=== PATIENT | male | born 1950 | race Caucasian/White ===

== ENCOUNTER 2017-02-17 23:48 | Emergency (ER) | payer SELFPAY ==
[~2017-02-17] VITALS: Ht 177.8 cm; Wt 68.0 kg
[~2017-02-17 23:48] MED LIST: ATORVASTATIN CA10 MG ORAL
[2017-02-17 23:50] VITALS: BP 132/81
[2017-02-18] MEDS ORDERED: IBUPROFEN600 MG ORAL (00:31)
--- NOTE | 2017-02-18 00:31 | Emergency Room Report ---
History of Present Illness General Chief Complaint: Pain Source: Patient, EMS Present Illness HPI Is a 66-year-old male with a history alcohol abuse. He presents with left leg pain. 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 He had surgery to the left leg. Since then he said his been complaining of pain. Throbbing in nature. He was in a nearby grocery store parking lot and someone called 911 because he was loitering there. He told police that his legs hurt so they called 911. Patient denies any new trauma. Pain is 9/10. He said that he can't walk but EMS said that he was walking without any difficulty. Allergies: Coded Allergies: No Known Allergies (Unverified , 02/17/17) Patient History Past Medical History: see triage record, old chart reviewed Past Surgical History: other Pertinent Family History: none Social History: Denies: smoking Immunizations: other Reviewed Nursing Documentation: PMH: Agreed, PSxH: Agreed Nursing Documentation-PMH Hx Hypertension: Yes Hx Asthma: Yes Hx Cerebrovascular Accident: Yes Hx Seizures: Yes Review of Systems Eye: Denies: blurred vision, eye pain ENT: Denies: ear pain, nose congestion, throat swelling Respiratory: Denies: cough, shortness of breath Cardiovascular: Denies: chest pain, palpitations Gastrointestinal: Denies: abdominal pain, diarrhea, nausea, vomiting Musculoskeletal: Reports: muscle pain, Denies: back pain, joint pain Skin: Denies: rash Neurological: Denies: headache, numbness Endocrine: Denies: increased thirst, increased urine Hematologic/Lymphatic: Denies: easy bruising All Other Systems: negative except mentioned in HPI Physical Exam Vital Signs Date Time Temp Pulse Resp B/P Pulse Ox O2 Delivery O2 Flow Rate FiO2 02/17/17 23:42 98.2 82 20 132/81 98 Room Air vitals normal Sp02 EP Interpretation: reviewed, normal General Appearance: well appearing, no apparent distress, alert Head: normocephalic, atraumatic Eyes: bilateral eye EOMI, bilateral eye PERRL ENT: hearing grossly normal, normal pharynx Neck: full range of motion, supple, no meningismus Respiratory: chest non-tender, lungs clear, normal breath sounds Cardiovascular #1: regular rate, rhythm, no murmur Gastrointestinal: normal bowel sounds, non tender, no mass, no organomegaly, no bruit, non-distended Musculoskeletal: back normal, gait/station normal, normal range of motion, other - scarring to left leg Neurologic: alert, oriented x3 Psychiatric: mood/affect normal Skin: warm/dry Medical Decision Making Diagnostic Impression: Primary Impression: Left leg pain ER Course Patient presents with chronic left leg pain after his fracture and surgery. No evidence of DVT or septic joint. No new trauma. Patient initially said that he can't walk but is walking without any issue. I did give him a cane. Last Vital Signs Date Time Temp Pulse Resp B/P Pulse Ox O2 Delivery O2 Flow Rate FiO2 02/17/17 23:42 98.2 82 20 132/81 98 Room Air Status: improved Disposition: HOME, SELF-CARE Condition: Stable Scripts Ibuprofen* (MOTRIN*) 600 Mg Tablet 600 MG ORAL THREE TIMES A DAY, #30 TAB 0 Refills Prov: MATTHEW IRVIN M.D. 02/18/17 Referrals: NOT CHOSEN [facility]/MD,REFERRING (PCP) Patient Instructions: Chronic Pain Additional Instructions: Follow up with your doctor in 7 days. Return if worse. MATTHEW IRVIN M.D. Feb 18, 2017 00:31
[2017-02-18 00:45] VITALS: BP 138/70
== END 2017-02-18 00:45 | disposition home or self-care (01) ==
LOC: EDBD 23:48 → EDSEX 23:48 → EMR 23:56
DX: M79.605 Pain in left leg (principal); G89.29 Other chronic pain; I10 Essential (primary) hypertension; J45.909 Unspecified asthma, uncomplicated; Z86.73 Personal history of transient ischemic attack (TIA), and cerebral infarction without residual deficits
CPT/HCPCS: 99283